=== PATIENT | male | born 1955 | race Caucasian/White ===

== ENCOUNTER 2022-09-09 17:40 | Emergency (ER) | payer MEDICARE, OTHER ==
[2022-09-09 18:08] VITALS: O2SAT 99
--- NOTE | 2022-09-09 18:13 | ERPHSYRPT ---
- History of Present Illness Time Seen by Provider: 09/09/22 18:10 Source: patient Exam Limitations: no limitations Patient Subjective Stated Complaint: C/O swelling to right hand and forearm. Patient states that he was stung by a wasp on that hand yesterday and the swelli ng keeps getting worse. He denies pain but describes his hand as feeling tight from the swelling. Triage Nursing Assessment: Patient ambulated back to ER. He is alert and orie nted. Right hand is very swollen with swelling extending into his lower forearm. Some redness noted. Patient has a bandaid over the wasp sting at this time. 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 There was some proximal streaking and he became concerned. Patient noticed a wasp sting yesterday. Patient has not taken any medication for this wasp being. Patient also has some abrasions to his right hand and midforearm secondary to a new puppy that has been scratching and biting him. Timing/Duration: yesterday Quality: itchy (Mild), painful (Mild) Severity: mild Location: hands Possible Causes: insect sting Modifying Factors: Improves With: other (Patient has not taken any medications at this time.) Associated Symptoms: denies symptoms Allergies/Adverse Reactions: No Known Drug Allergies Allergy (Verified 09/09/22 17:58) Home Medications: Apixaban [Eliquis] 1 tab PO BID 09/09/22 [History] Hx Tetanus, Diphtheria Vaccination/Date Given: Yes Hx Influenza Vaccination/Date Given: No Hx Pneumococcal Vaccination/Date Given: No Immunizations Up to Date: Yes Travel Risk - International Travel Have you traveled outside of the country in past 3 weeks: No - Coronavirus Screening Are you exhibiting any of the following symptoms?: No Close contact with a COVID-19 positive Pt in past 14-21 Days: No - Vaccine Status Have you recieved a Covid-19 vaccination: Yes Acute Care Nurse: Unknown - Vaccination Dates Dates if Unknown: ? - Review of Systems Constitutional: No Symptoms Eyes: No Symptoms Ears, Nose, & Throat: No Symptoms Respiratory: No Symptoms Cardiac: No Symptoms Abdominal/Gastrointestinal: No Symptoms Genitourinary Symptoms: No Symptoms Musculoskeletal: No Symptoms Skin: Cellulitis (Dorsal aspect right hand), Other (Swelling dorsal aspect right hand and distal wrist) Neurological: No Symptoms Psychological: No Symptoms Endocrine: No Symptoms Hematologic/Lymphatic: No Symptoms Immunological/Allergic: No Symptoms All Other Systems: Reviewed and Negative - Past Medical History Pertinent Past Medical History: Yes Other Medical History: DVT RLE - Past Surgical History Past Surgical History: Yes Other Surgical History: right hip replacement, 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 - Social History Smoking Status: Current every day smoker How long have you smoked: "Long time Exposure to second hand smoke: No Drug Use: none - Nursing Vital Signs Nursing Vital Signs: Initial Vital Signs Temperature 98 F 09/09/22 17:59 Pulse Rate 70 09/09/22 17:59 Respiratory Rate 17 09/09/22 17:59 Blood Pressure 148/92 09/09/22 17:59 O2 Sat by Pulse Oximetry 99 09/09/22 17:59 Pain Scale Pain Intensity 0 - Physical Exam General Appearance: no apparent distress, alert, anxiety Eye Exam: PERRL/EOMI, eyes nml inspection Ears, Nose, Throat Exam: normal ENT inspection, moist mucous membranes Neck Exam: normal inspection, non-tender, supple, full range of motion Respiratory Exam: airway intact, No chest tenderness, No respiratory distress Gastrointestinal/Abdomen Exam: No tenderness Rectal Exam: not done Back Exam: normal inspection, normal range of motion, No CVA tenderness Extremity Exam: normal range of motion, pelvis stable, inflammation (Dorsal aspe ct right hand), swelling (Dorsal aspect right hand), tenderness (Dorsal aspect right hand), other (Cellulitis dorsal aspect right hand.) Neurologic Exam: alert, oriented x 3, cooperative, 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, normal mood/affect, nml cerebellar function, nml station & gait, sensation nml Skin Exam: abrasion (Mid forearm right side dorsal aspect right hand) Lymphatic Exam: No adenopathy SpO2 Interpretation: normal SpO2: 99 O2 Delivery: Room Air - Course Nursing assessment & vital signs reviewed: Yes Ordered Tests: Medication Summary Generic Name Dose Route Start Last Admin Trade Name Freq PRN Reason Stop Dose Admin Ceftriaxone Sodium 1,000 mg 09/09/22 18:22 Ceftriaxone Sodium 1000 Mg Inj Vial IM 09/09/22 18:23 STAT ONE Methylprednisolone Sodium 0 mg 09/09/22 18:22 Succinate 125 mg/ Sterile IM 09/09/22 18:23 Water 2 ml STAT ONE Famotidine 40 mg 09/09/22 18:22 Famotidine 20 Mg Tablet PO 09/09/22 18:23 STAT ONE - Progress Progress: unchanged Progress Note: 09/09/22 18:30 This patient's medical issue is 1 of low complexity. Level complexity and the work-up performed is based on review of the patient's past medical history, review of the patient's medication list, review of the patient's drug allergy list, history present illness and physical findings on examination. The patient does not require any laboratory or radiographic studies. The patient has a combination of allergic reaction to a bee sting as well as cellulitis. We provided him with Pepcid 40 mg orally, intramuscular injection of 125 mg of Solu-Medrol and 1 g of Rocephin intramuscular injection. Patient will take Benadryl at home. Patient drove himself to the emergency department. Counseled pt/family regarding: diagnosis, need for follow-up - Departure Departure Disposition: Home Clinical Impression: Allergic reaction, Cellulitis Condition: Stable Critical Care Time: No Additional Instructions: Take Benadryl 25 mg orally right when you return home. Then continue taking Benadryl 25 mg 3 times a day for the next 4 to 5 days. Take your other medications as prescribed. Follow-up with your primary care provider for further evaluation and management. Return to the emergency department if symptoms worsen. Prescriptions: Amoxicillin/Potassium Clav [Augmentin 500-125 Tablet] 1 each PO TID 5 Days #15 tablet Prednisone 10 mg [Deltasone 10 mg] 10 mg PO TID #12 tablet Famotidine 20 mg [Pepcid 20 MG] 20 mg PO DAILY #5 tablet
[2022-09-09] MEDS ORDERED: Pepcid 20 MG PO ONE (18:22)
[2022-09-09] MEDS ORDERED: Rocephin 1000 MG INJ IM ONE (18:22)
[2022-09-09] MEDS ORDERED: solu-MEDROL 125 MG, Sterile H2O 10 ml 2 ML IM ONE ×2 (18:22)
[2022-09-09] MEDS ORDERED: Sterile H2O 10 ml IJ ONE (18:33)
[2022-09-09] MEDS ORDERED: Pepcid 20 MG ONE (18:33)
[2022-09-09] MEDS ORDERED: solu-MEDROL ONE (18:34)
[2022-09-09] MEDS ORDERED: Rocephin 1000 MG INJ ONE (18:34)
[2022-09-09] MEDS ORDERED: XYLOCAINE 1% HCL 20 ML MDV ONE (18:34)
[2022-09-09 18:57] VITALS: BP 140/90
[2022-09-09 19:23] VITALS: PULSE 72
== END 2022-09-09 19:23 | disposition home or self-care (01) ==
LOC: ED 17:40
DX: T63.441A Toxic effect of venom of bees, accidental (unintentional), initial encounter (principal); M79.89 Other specified soft tissue disorders; L03.113 Cellulitis of right upper limb; Z79.01 Long term (current) use of anticoagulants; Z79.52 Long term (current) use of systemic steroids; Z72.0 Tobacco use
CPT/HCPCS: 96372; 99283; J0696; J2930; A9270-GY